=== PATIENT | female | born 1975 | race Caucasian/White ===

== ENCOUNTER 2019-02-22 17:20 | Emergency (ER) | payer MEDICARE, SELFPAY ==
[2019-02-22 17:24] VITALS: BP 135/104; PULSE 103; RESP 16; TEMP 36.8; O2SAT 97; BMI 18.8
--- NOTE | 2019-02-22 18:16 | ED_ITS ---
HPI - Weakness <Marcy Burgess PA-C - Last Filed: 02/22/19 20:13> General Chief complaint: Weakness Stated complaint: MS FLARE Time Seen by Provider: 02/22/19 18:09 Source: patient and family Mode of arrival: ambulatory Limitations: no limitations History of Present Illness HPI Narrative: This 43-year-old female comes to ED secondary to feeling of generalized weakness, concern for MS flare. She states that normally she is good about keeping snacks at work so she can nibble frequently, however today she has not had any food or water at all and states she started to feel tired at lunchtime. She states that she feels very fatigued and generalized weakness. She states it is even an effort to breathe. She has some soreness all over. She does have a history of MS. She denies any acute localized pain. She denies any localized weakness today. She states that she always has some double vision due to the MS but this has not changed today. She has not had any nausea or vomiting. She denies any urinary symptoms, chest pain or king dyspnea. She states she has had some allergy symptoms with runny nose and postnasal drip and occasional cough which are unchanged. She has not had any fever, chills, sweats. She states she does not feel ill and has not been exposed to anyone with infection. She denies any possibility of and states she has menses now. She does not know who her primary care provider is, does see a neurologist in [place]. She reports compliance with [employer] for MS Related Data Allergies Allergy/AdvReac Type Severity Reaction Status Date / Time No Known Drug Allergies Allergy Verified 02/22/19 17:29 Review of Systems <Marcy Burgess PA-C - Last Filed: 02/22/19 20:13> Review of Systems ROS Unobtainable: All systems reviewed & are unremarkable except as noted in HPI and below PFSH <Marcy Burgess PA-C - Last Filed: 02/22/19 20:13> Medical History (Updated 02/22/19 @ 19:50 by Marcy Burgess PA-C) Hypothyroidism (Chronic) Multiple sclerosis (Chronic) Seasonal allergies (Chronic) Surgical History (Updated 02/22/19 @ 18:46 by Marcy Burgess PA-C) History of thoracic surgery (Resolved) Social History (Updated 02/22/19 @ 18:46 by Marcy Burgess PA-C) Smoking Status: Never smoker Social History (Updated 02/22/19 @ 18:46 by Marcy Burgess PA-C) Smoking Status: Never smoker Exam <Marcy Burgess PA-C - Last Filed: 02/22/19 20:13> Narrative Exam Narrative: GENERAL APPEARANCE: Patient sitting comfortably, in no distress, playing a cellphone game with her significant other NECK/THYROID: Neck supple,: LUNGS: Clear to auscultation bilaterally, no cough on exam. HEART: Regular rate and rhythm without murmur, normal S1, S2, no S3 or S4. ABDOMEN: Soft, NT, ND, + BS x 4 quadrants EXTREMITIES: No edema. No calf tenderness NEUROLOGIC: Alert, needs to be frequently redirected but answers questions appropriately, normal speech and coordination. DERMATOLOGIC: No exanthem MUSCULOSKELETAL: Moves all extremities without focal weakness Initial Vital Signs Initial Vital Signs: Vital Signs Temperature 98.2 F 02/22/19 17:24 Pulse Rate 103 H 02/22/19 17:24 Respiratory Rate 16 02/22/19 17:24 Blood Pressure 135/104 H 02/22/19 17:24 Pulse Oximetry 97 02/22/19 17:24 <Dony Sampson DO - Last Filed: 02/22/19 20:55> Initial Vital Signs Initial Vital Signs: Vital Signs Temperature 98.2 F 02/22/19 17:24 Pulse Rate 103 H 02/22/19 17:24 Respiratory Rate 16 02/22/19 17:24 Blood Pressure 135/104 H 02/22/19 17:24 Pulse Oximetry 97 02/22/19 17:24 Course <Marcy Burgess PA-C - Last Filed: 02/22/19 20:13> Additional Information: Patient reported compliance with her medications, denies any intoxication. She reported feeling improved after some IV fluids as well as eating and drinking, no trouble tolerating p.o. intake. She did not have any focal symptoms today. Suspect that based on her history this is due to not eating or drinking all day when she states that typically she has to small amounts of food throughout the day. Advised return if any acutely worsening symptoms, otherwise follow up with PCP Orders Ordered: ED Orders 02/22/19 18:32 XR chest 1V Stat 02/22/19 18:40 Complete Blood Count AUTO DIFF Stat Comprehensive Metabolic Panel Stat Discontinued Medications Sodium Chloride (Normal Saline 0.9%) 1,000 mls @ 1,000 mls/hr IV BOLUS ONE Stop: 02/22/19 19:31 Last Admin: 02/22/19 18:54 Dose: Not Given Sodium Chloride (Normal Saline 0.9%) 1,000 mls @ 1,000 mls/hr IV BOLUS ONE Stop: 02/22/19 19:38 Last Infusion: 02/22/19 19:55 Dose: 1,000 mls/hr Admin: 02/22/19 18:47 Dose: 1,000 mls/hr Vital Signs - 8 hr 02/22/19 17:24 02/22/19 19:55 Temperature 98.2 F Pulse Rate 103 H 82 Respiratory Rate 16 15 Blood Pressure 135/104 H 120/92 H Pulse Oximetry 97 97 <Dony Sampson DO - Last Filed: 02/22/19 20:55> Orders Ordered: ED Orders 02/22/19 18:32 XR chest 1V Stat 02/22/19 18:40 Complete Blood Count AUTO DIFF Stat Comprehensive Metabolic Panel Stat Discontinued Medications Sodium Chloride (Normal Saline 0.9%) 1,000 mls @ 1,000 mls/hr IV BOLUS ONE Stop: 02/22/19 19:31 Last Admin: 02/22/19 18:54 Dose: Not Given Sodium Chloride (Normal Saline 0.9%) 1,000 mls @ 1,000 mls/hr IV BOLUS ONE Stop: 02/22/19 19:38 Last Infusion: 02/22/19 19:55 Dose: 1,000 mls/hr Admin: 02/22/19 18:47 Dose: 1,000 mls/hr Vital Signs - 8 hr 02/22/19 17:24 02/22/19 19:55 Temperature 98.2 F Pulse Rate 103 H 82 Respiratory Rate 16 15 Blood Pressure 135/104 H 120/92 H Pulse Oximetry 97 97 MDM - Weakness <Marcy Burgess PA-C - Last Filed: 02/22/19 20:13> Lab Data Attestation: I reviewed the patient's lab results. Result diagrams: 02/22/19 18:40 02/22/19 18:40 Lab Results 02/22/19 02/22/19 Range/Units 18:40 18:40 WBC 5.4 (4.5-11.0) X10^3/uL RBC 4.04 (4.0-5.2) X10^6/uL Hgb 12.9 (12.0-16.0) g/dL Hct 38.3 (36-46) % MCV 94.8 (80-100) fL MCH 31.9 (26-34) PG MCHC 33.6 (30-36) % RDW 14.8 (11.6-14.8) % Plt Count 245 (150-400) X10^3/uL Neut % (Auto) 42.3 L (50-75) % Lymph % (Auto) 49.1 H (25-40) % Brooke % (Auto) 7.7 (3-14) % Eos % (Auto) 0.5 L (2-4) % Baso % (Auto) 0.4 (0-2) % Neut # (Auto) 2300 (4355-7990) /uL Lymph # (Auto) 2700 (5145-6525) /uL Brooke # (Auto) 400 (0-900) /uL Eos # (Auto) 0 (0-450) /uL Baso # (Auto) 0 (0-100) /uL Sodium 147 H (137-145) mmol/L Potassium 3.8 (3.4-5.1) mmol/L Chloride 107 (98-107) mmol/L Carbon Dioxide 26 (22-32) mmol/L BUN 12 (7-17) mg/dL Creatinine 0.60 (0.52-1.04) mg/dL Estimated GFR > 60.0 (>60) mL/min BUN/Creatinine Ratio 20.0 (6-22) Glucose 102 H (70-100) mg/dL Calcium 9.5 (8.4-10.2) mg/dL Total Bilirubin 0.4 (0.2-1.3) mg/dL AST 39 H (14-36) IU/L ALT 19 (9-52) IU/L Alkaline Phosphatase 54 (38-126) U/L Total Protein 8.5 H (6.3-8.2) g/dL Albumin 5.0 (3.5-5.0) g/dL Globulin 3.5 (1.7-4.1) g/dL Albumin/Globulin Ratio 1.4 (1.0-2.8) Point of Care Testing Glucose POC 107 Imaging Data Chest x-ray: Radiologist's impression: 25 Marcy Burgess PA-C Find Patient Imaging JEFF LIN A 43 F 1975 ACTIVITY DATE EXAM STATUS AUTHOR 02/22/19 18:[address] [address] XRay Report Signed Patient: JEFF LIN [facility]#: [id number] : 1975Acct:[id number] Age/Sex: 43 / FDate of Service: 02/22/19 Loc: ED Accession Number: [id number] Procedure: XR chest 1V Ordering Provider: Marcy Burgess P.A-C PROCEDURE: XR CHEST 1V INDICATIONS: fatigue, dyspnea TECHNIQUE: One view of the chest was acquired. COMPARISON: None. FINDINGS: Surgical changes and devices: None. Lungs and pleura: Lungs are clear. No pleural effusions or pneumothorax. Mediastinum: Mediastinal contours appear normal. Heart size is normal. Bones and chest wall: No suspicious bony lesions. Overlying soft tissues appear unremarkable. IMPRESSION: Normal for age, source of current fatigue and shortness of breath symptoms is not seen. Dictated by: Leighton Galicia M.D. on 02/22/2019 at 18:54 Approved by: Leighton Galicia M.D. on 02/22/2019 at 18:54 <Dony Sampson DO - Last Filed: 02/22/19 20:55> Lab Data Lab Results 02/22/19 02/22/19 Range/Units 18:40 18:40 WBC 5.4 (4.5-11.0) X10^3/uL RBC 4.04 (4.0-5.2) X10^6/uL Hgb 12.9 (12.0-16.0) g/dL Hct 38.3 (36-46) % MCV 94.8 (80-100) fL MCH 31.9 (26-34) PG MCHC 33.6 (30-36) % RDW 14.8 (11.6-14.8) % Plt Count 245 (150-400) X10^3/uL Neut % (Auto) 42.3 L (50-75) % Lymph % (Auto) 49.1 H (25-40) % Brooke % (Auto) 7.7 (3-14) % Eos % (Auto) 0.5 L (2-4) % Baso % (Auto) 0.4 (0-2) % Neut # (Auto) 2300 (2473-3406) /uL Lymph # (Auto) 2700 (6615-2091) /uL Brooke # (Auto) 400 (0-900) /uL Eos # (Auto) 0 (0-450) /uL Baso # (Auto) 0 (0-100) /uL Sodium 147 H (137-145) mmol/L Potassium 3.8 (3.4-5.1) mmol/L Chloride 107 (98-107) mmol/L Carbon Dioxide 26 (22-32) mmol/L BUN 12 (7-17) mg/dL Creatinine 0.60 (0.52-1.04) mg/dL Estimated GFR > 60.0 (>60) mL/min BUN/Creatinine Ratio 20.0 (6-22) Glucose 102 H (70-100) mg/dL Calcium 9.5 (8.4-10.2) mg/dL Total Bilirubin 0.4 (0.2-1.3) mg/dL AST 39 H (14-36) IU/L ALT 19 (9-52) IU/L Alkaline Phosphatase 54 (38-126) U/L Total Protein 8.5 H (6.3-8.2) g/dL Albumin 5.0 (3.5-5.0) g/dL Globulin 3.5 (1.7-4.1) g/dL Albumin/Globulin Ratio 1.4 (1.0-2.8) Point of Care Testing Glucose POC 107 Discharge Plan Departure Patient Disposition: Home Clinical Impression: Weakness generalized Fatigue Qualifiers: Fatigue type: other Qualified Code(s): R53.83 - Other fatigue Discharge Date/Time: 02/22/19 19:55 Interventions: ED Discharge Assessment Last Done: 02/22/19 19:55 Instructions: DI for Fatigue Activity Restrictions/Additional Instructions: There was no acute problem found on your lab work today to explain your fatigue and weakness, and I suspect from what you described to me today that this was due to lack of food and fluids with working. Since you are feeling better and able to keep down food and fluids on your own, you can monitor at home. Please drink lots of clear fluids tonight and eat as you usually would, and you can resume normal activity tomorrow as long as you are feeling better. Please schedule a follow-up with your primary care provider this week for recheck. You do not appear to have an exacerbation of your MS today, but you should contact your neurologist right away if you have localized weakness, new vision changes, localized pain, etc. Please continue your usual medications Referrals: Juan Carlos Eagle DO [Non-Staff] - <Dony Sampson DO - Last Filed: 02/22/19 20:55> Cosign ED Attending Boature Attestation: I was available for consultation during this patient's emergency department encounter
--- NOTE | 2019-02-22 18:32 | DI.RAD.S_ITS ---
PROCEDURE: XR CHEST 1V INDICATIONS: fatigue, dyspnea TECHNIQUE: One view of the chest was acquired. COMPARISON: None. FINDINGS: Surgical changes and devices: None. Lungs and pleura: Lungs are clear. No pleural effusions or pneumothorax. Mediastinum: Mediastinal contours appear normal. Heart size is normal. Bones and chest wall: No suspicious bony lesions. Overlying soft tissues appear unremarkable. IMPRESSION: Normal for age, source of current fatigue and shortness of breath symptoms is not seen. Dictated by: Leighton Galicia M.D. on 02/22/2019 at 18:54 Approved by: Leighton Galicia M.D. on 02/22/2019 at 18:54
[2019-02-22] MEDS: SODIUM CHLORIDE 0.9% 1,000 ML 1000 ML IV (18:47)
[2019-02-22 18:49] LABS: Add Manual Diff / Slide Review NO; Basophils Absolute Auto 0 /uL (0-100); Basophils Percent Auto 0.4 % (0-2); Eosinophils Absolute Auto 0 /uL (0-450); Eosinophils Percent Auto 0.5 % (2-4); Hematocrit 38.3 % (36-46); Hemoglobin 12.9 g/dL (12.0-16.0); Lymphocytes Absolute Auto 2700 /uL (1100-4500); Lymphocytes Percent Auto 49.1 % (25-40); Mean Corpuscular HGB Conc 33.6 % (30-36); Mean Corpuscular Hemoglobin 31.9 PG (26-34); Mean Corpuscular Volume 94.8 fL (80-100); Monocytes Absolute Auto 400 /uL (0-900); Monocytes Percent Auto 7.7 % (3-14); Neutrophils Absolute Auto 2300 /uL (1500-7000); Neutrophils Percent Auto 42.3 % (50-75); Platelet Count 245 X10^3/uL (150-400); Red Blood Cell Count 4.04 X10^6/uL (4.0-5.2); Red Cell Distribution Width 14.8 % (11.6-14.8); White Blood Cell Count 5.4 X10^3/uL (4.5-11.0)
[2019-02-22 19:09] LABS: Alanine Aminotransferase 19 IU/L (9-52); Albumin Globulin Ratio 1.4 (1.0-2.8); Alkaline Phosphatase 54 U/L (38-126); Aspartate Aminotransferase 39 IU/L (14-36); Bilirubin Total 0.4 mg/dL (0.2-1.3); Blood Urea Nitrogen 12 mg/dL (7-17); Calcium 9.5 mg/dL (8.4-10.2); Carbon Dioxide 26 mmol/L (22-32); Chloride 107 mmol/L (98-107); Estimated Glomerular Filt Rate > 60.0 mL/min (>60); Globulin 3.5 g/dL (1.7-4.1); Glucose 102 mg/dL (70-100); HEMOLYSIS 16 (0-50); Potassium 3.8 mmol/L (3.4-5.1); Sodium 147 mmol/L (137-145); Total Protein 8.5 g/dL (6.3-8.2)
[2019-02-22 19:55] VITALS: BP 120/92; PULSE 82; RESP 15; O2SAT 97
== END 2019-02-22 19:55 | disposition home or self-care (01) ==
PROVIDERS: Emergency Provider Internal Medicine
DX: R53.83 Other fatigue (principal)
CPT/HCPCS: 36591; 71045; 80053; 82962; 85025; 96360; 99283; 99284

== ENCOUNTER 2020-07-14 20:01 | Emergency (ER) | payer MEDICARE, SELFPAY ==
[2020-07-14] VITALS (7 sets, daily range): BP systolic 148–161; BP diastolic 92–113; PULSE 41–52; RESP 13–24; TEMP 36.4; O2SAT 97–100; BMI 18.0
--- NOTE | 2020-07-14 20:14 | DI.RAD.S_ITS ---
PROCEDURE: XR CHEST 1V INDICATIONS: chest pain TECHNIQUE: One view of the chest was acquired. COMPARISON: [facility], CT, CT ANGIO CHEST PE, 05/07/2020, 9:14. [facility], CR, XR CHEST 1V, 02/22/2019, 18:37. FINDINGS: Surgical changes and devices: None. Lungs and pleura: Lungs are clear. No pleural effusions or pneumothorax. Mediastinum: Mediastinal contours appear abnormal with a right-sided aortic arch. Heart size is normal. Bones and chest wall: No suspicious bony lesions. Overlying soft tissues appear unremarkable. IMPRESSION: No pneumonia found. Right-sided aortic arch noted. Dictated by: Leighton Galicia M.D. on 07/14/2020 at 20:33 Approved by: Leighton Galicia M.D. on 07/14/2020 at 20:35
[2020-07-14 20:33] LABS: INR 0.9 (0.9-1.3); Prothrombin Time 10.6 SECONDS (10.1-12.7)
[2020-07-14 20:36] LABS: PTT Partial Thromboplastin Tim 24 SECONDS (26.4-36.2)
--- NOTE | 2020-07-14 20:36 | PC.NURSE ---
Provider notified and aware of pulse.
[2020-07-14 20:37] LABS: Alanine Aminotransferase 41 IU/L (<35); Albumin 3.8 g/dL (3.5-5.0); Albumin Globulin Ratio 1.5 (1.0-2.8); Alkaline Phosphatase 41 U/L (38-126); Aspartate Aminotransferase 29 IU/L (14-36); BUN Creatinine Ratio 30.8 (6-22); Bilirubin Total 0.5 mg/dL (0.2-1.3); Blood Urea Nitrogen 12 mg/dL (7-17); Calcium 8.4 mg/dL (8.4-10.2); Carbon Dioxide 27 mmol/L (22-32); Chloride 100 mmol/L (98-107); Creatine Kinase 22 U/L (30-135); Estimated Glomerular Filt Rate > 60.0 mL/min (>60); Globulin 2.6 g/dL (1.7-4.1); Glucose 135 mg/dL (70-100); HEMOLYSIS < 15 (0-50); Lipase 307 U/L (23-300); Sodium 131 mmol/L (137-145); Total Protein 6.4 g/dL (6.3-8.2)
[2020-07-14 20:44] LABS: Add Manual Diff / Slide Review NO; Basophils Absolute Auto 0 /uL (0-100); Basophils Percent Auto 0.2 % (0-2); Eosinophils Absolute Auto 100 /uL (0-450); Eosinophils Percent Auto 0.7 % (2-4); Hematocrit 35.6 % (36-46); Lymphocytes Absolute Auto 5000 /uL (1100-4500); Lymphocytes Percent Auto 32.8 % (25-40); Mean Corpuscular HGB Conc 33.8 % (30-36); Mean Corpuscular Hemoglobin 31.6 PG (26-34); Mean Corpuscular Volume 93.4 fL (80-100); Monocytes Absolute Auto 1300 /uL (0-900); Monocytes Percent Auto 8.3 % (3-14); Neutrophils Absolute Auto 8900 /uL (1500-7000); Platelet Count 467 X10^3/uL (150-400); Red Blood Cell Count 3.81 X10^6/uL (4.0-5.2); Red Cell Distribution Width 13.5 % (11.6-14.8); White Blood Cell Count 15.3 X10^3/uL (4.5-11.0)
[2020-07-14 20:49] LABS: Troponin I < 0.012 ng/mL (0.01-0.034)
[2020-07-14] MEDS: methylPREDNISolone 125 MG/2 ML VIAL IV ×2 (20:54→21:27)
--- NOTE | 2020-07-14 21:49 | ED.WEAKNESS ---
HPI - Weakness General Chief complaint: Weakness Stated complaint: incoherent Time Seen by Provider: 07/14/20 20:39 Source: patient and family Mode of arrival: Family Vehicle Limitations: no limitations History of Present Illness HPI Narrative: Onset of generalized weakness slow speech and confusion typical of her multiple sclerosis exacerbation according patient and starting 2-3 hours ago. Patient was just seen and admitted to [facility] last week. For exacerbation. MRI was completed.. Patient was placed on total 5 days of IV steroids 1 g per day. Hypotension likely due to poor intake and vomiting. IV hydration established history alcohol use. Patient given steroid pack last Wednesday by her neurologist and is tapering. MRI of the brain July 08, 2020 at 8:00 a.m. to a.m.. Slightly increased diffuse white matter signals compared to August 26, 2017 no other comparison. Patient denies any alcohol use today. Related Data Home Medications Medication Instructions Recorded Confirmed methocarbamol 500 mg PO TID 07/14/20 07/14/20 Allergies Allergy/AdvReac Type Severity Reaction Status Date / Time No Known Drug Allergies Allergy Verified 07/14/20 20:22 Review of Systems Review of Systems Narrative: GENERAL: Denies chills, fatigue, malaise, fever, sweats. Complains of general weakness HEENT: Denies sinus pain, ear pain, sore throat, difficulty swallowing RESPIRATORY: Denies dyspnea, cough CARDIOVASCULAR: Denies chest pain, palpitations, edema, GASTROINTESTINAL: Denies nausea, vomiting, abdominal pain, diarrhea, constipation, melena. : Denies dysuria, frequency, hematuria MUSCULOSKELETAL: denies muscle or bony pain SKIN: Denies rash, skin lesions NEUROLOGIC: Complains of general weakness, denied headache, numbness, complains change in speech, confusion PSYCHIATRIC: No SI or HI or hallucinations ROS Unobtainable: All systems reviewed & are unremarkable except as noted in HPI and below Patient History Medical History Hypothyroidism (Chronic) Multiple sclerosis (Chronic) Seasonal allergies (Chronic) Surgical History History of thoracic surgery (Resolved) Social History Smoking Status: Never smoker Smoking Status: Never smoker alcohol intake frequency: 0-2 drinks per day Substance Use Type: does not use Exam Narrative Exam Narrative: GENERAL: patient appears stated age. Well-nourished, well-developed patient, in no distress, not toxic not dyspneic HEAD: Normocephalic. EYES: Pupils equal round and reactive. No scleral icterus. No injection no discharge EOMI ENT: Mucous membranes moist. No drooling no tongue elevation no trismus no malocclusion NECK: Trachea midline. Non tender CARDIOVASCULAR: Regular rate and rhythm without murmurs, gallops, or rubs. RESPIRATORY: Clear to auscultation. Breath sounds equal bilaterally. No wheezes, rales, or rhonchi. GASTROINTESTINAL: Abdomen soft, non-tender, nondistended. EXTREMITIES: No gross deformities. BACK: Nontender without deformity or crepitance. No flank tenderness. NEURO: AOx4. Has slurred speech but is answering appropriately. Strong equal senior cyber security analyst. No facial droop. SKIN: Warm and dry PSYCH: Not anxious, is cooperative Initial Vital Signs Initial Vital Signs: Vital Signs Temperature 97.6 F 07/14/20 20:15 Pulse Rate 41 L 07/14/20 20:15 Respiratory Rate 18 07/14/20 20:15 Blood Pressure 159/100 H 07/14/20 20:15 Pulse Oximetry 99 07/14/20 20:15 Course Course Course Narrative: Patient new finding of bradycardia. Will need admission/transfer. We do not have Neurology at this hospital. Decision to Admit Date: 07/14/20 Decision to Admit time: 21:49 Orders Ordered: ED Orders 07/14/20 20:14 XR chest 1V Stat EKG-12 Lead Stat 07/14/20 20:15 COVID19 -ED/INPAT/OR/L&D Stat Complete Blood Count AUTO DIFF Stat Comprehensive Metabolic Panel Stat ETOH [Ethanol (ETOH)] Stat Lipase Stat Partial Thromboplastin Time Stat Prothrombin Time INR Stat Thyroid Stimulating Hormone Stat Troponin & CK Cardiac Panel Stat Discontinued Medications Methylprednisolone (Solu-Medrol 125 Mg Vial) 125 mg IV NOW ONE Stop: 07/14/20 20:51 Last Admin: 07/14/20 20:54 Dose: 125 mg Documented by: RMARTIN Methylprednisolone (Solu-Medrol 125 Mg Vial) 125 mg IV NOW ONE Stop: 07/14/20 21:24 Last Admin: 07/14/20 21:27 Dose: 125 mg Documented by: RMARTIN Methylprednisolone (Solu-Medrol 125 Mg Vial) 750 mg IV NOW ONE Stop: 07/14/20 21:47 Last Admin: 07/14/20 22:07 Dose: 750 mg Documented by: SOLIS Reevaluation(s) Reevaluation #1: Reviewed with patient and results and they agreed for transfer to [place]. Currently feeling a bit better. Speech has improved. Improved with more clear speech. Otherwise resting comfortably Time: 22:03 Consultations Consultation #1: Spoke with patient Neurologist, dr bernard, give total of 1 g of Solu-Medrol now. Get alcohol level. Patient can be transferred to [place] admit to hospitalist. Time: 21:50 Consultation #2: Spoke with Dr. Mcgregor, hospitalist at [place]. Will accept patient monitored bed Time: 22:04 Vital Signs Vital signs: Vital Signs - 8 hr 07/14/20 20:15 07/14/20 20:19 07/14/20 20:30 Temperature 97.6 F Pulse Rate 41 L 43 L 52 L Respiratory Rate 18 14 16 Blood Pressure 159/100 H 148/92 H Pulse Oximetry 99 100 99 07/14/20 21:00 07/14/20 21:30 07/14/20 22:00 Temperature Pulse Rate 44 L 44 L 47 L Respiratory Rate 13 15 24 Blood Pressure 161/99 H 160/98 H 154/111 H Pulse Oximetry 100 99 98 07/14/20 22:13 Temperature Pulse Rate 45 L Respiratory Rate 15 Blood Pressure 161/113 H Pulse Oximetry 97 MDM - Weakness Differential Diagnosis Differential diagnosis: Likely dehydration and other (Alcohol intoxication/MS exacerbation) Medical Records Attestation: I reviewed the patient's medical records. Medical records narrative: The medical chart faxed from [facility] Lab Data Attestation: I reviewed the patient's lab results. Result diagrams: 07/14/20 20:15 07/14/20 20:15 Labs: Lab Results 07/14/20 07/14/20 07/14/20 Range/Units 20:15 20:15 20:15 WBC 15.3 H (4.5-11.0) X10^3/uL RBC 3.81 L (4.0-5.2) X10^6/uL Hgb 12.0 (12.0-16.0) g/dL Hct 35.6 L (36-46) % MCV 93.4 (80-100) fL MCH 31.6 (26-34) PG MCHC 33.8 (30-36) % RDW 13.5 (11.6-14.8) % Plt Count 467 H (150-400) X10^3/uL Neut % (Auto) 58.0 (50-75) % Lymph % (Auto) 32.8 (25-40) % Izard % (Auto) 8.3 (3-14) % Eos % (Auto) 0.7 L (2-4) % Baso % (Auto) 0.2 (0-2) % Neut # (Auto) 8900 H (0922-3670) /uL Lymph # (Auto) 5000 H (7285-8342) /uL Izard # (Auto) 1300 H (0-900) /uL Eos # (Auto) 100 (0-450) /uL Baso # (Auto) 0 (0-100) /uL PT 10.6 (10.1-12.7) SECONDS INR 0.9 (0.9-1.3) APTT 24 L (26.4-36.2) SECONDS Sodium 131 L (137-145) mmol/L Potassium 4.0 (3.4-5.1) mmol/L Chloride 100 (98-107) mmol/L Carbon Dioxide 27 (22-32) mmol/L BUN 12 (7-17) mg/dL Creatinine 0.39 L (0.52-1.04) mg/dL Estimated GFR > 60.0 (>60) mL/min BUN/Creatinine Ratio 30.8 H (6-22) Glucose 135 H (70-100) mg/dL Calcium 8.4 (8.4-10.2) mg/dL Total Bilirubin 0.5 (0.2-1.3) mg/dL AST 29 (14-36) IU/L ALT 41 H (<35) IU/L Alkaline Phosphatase 41 (38-126) U/L Total Creatine Kinase 22 L (30-135) U/L CK-MB (CK-2) TNP CK-MB (CK-2) Rel Index TNP Troponin I < 0.012 (0.01-0.034) ng/mL Total Protein 6.4 (6.3-8.2) g/dL Albumin 3.8 (3.5-5.0) g/dL Globulin 2.6 (1.7-4.1) g/dL Albumin/Globulin Ratio 1.5 (1.0-2.8) Lipase 307 H (23-300) U/L TSH (0.47-4.68) uIU/mL Ethyl Alcohol ( - 10) mg/dL COVID-19 PCR (Negative) 07/14/20 07/14/20 07/14/20 Range/Units 20:15 20:15 20:15 WBC (4.5-11.0) X10^3/uL RBC (4.0-5.2) X10^6/uL Hgb (12.0-16.0) g/dL Hct (36-46) % MCV (80-100) fL MCH (26-34) PG MCHC (30-36) % RDW (11.6-14.8) % Plt Count (150-400) X10^3/uL Neut % (Auto) (50-75) % Lymph % (Auto) (25-40) % Izard % (Auto) (3-14) % Eos % (Auto) (2-4) % Baso % (Auto) (0-2) % Neut # (Auto) (4613-2587) /uL Lymph # (Auto) (3903-7378) /uL Izard # (Auto) (0-900) /uL Eos # (Auto) (0-450) /uL Baso # (Auto) (0-100) /uL PT (10.1-12.7) SECONDS INR (0.9-1.3) APTT (26.4-36.2) SECONDS Sodium (137-145) mmol/L Potassium (3.4-5.1) mmol/L Chloride (98-107) mmol/L Carbon Dioxide (22-32) mmol/L BUN (7-17) mg/dL Creatinine (0.52-1.04) mg/dL Estimated GFR (>60) mL/min BUN/Creatinine Ratio (6-22) Glucose (70-100) mg/dL Calcium (8.4-10.2) mg/dL Total Bilirubin (0.2-1.3) mg/dL AST (14-36) IU/L ALT (<35) IU/L Alkaline Phosphatase (38-126) U/L Total Creatine Kinase (30-135) U/L CK-MB (CK-2) CK-MB (CK-2) Rel Index Troponin I (0.01-0.034) ng/mL Total Protein (6.3-8.2) g/dL Albumin (3.5-5.0) g/dL Globulin (1.7-4.1) g/dL Albumin/Globulin Ratio (1.0-2.8) Lipase (23-300) U/L TSH 0.257 L (0.47-4.68) uIU/mL Ethyl Alcohol < 10 ( - 10) mg/dL COVID-19 PCR Negative (Negative) Imaging Data Chest x-ray: Radiologist Impression: [address] [address] XRay Report Signed Patient: JEFF LIN [facility]#: [id number] : 1975Acct:[id number] Age/Sex: 44 / FDate of Service: 07/14/20 Loc: ED Accession Number: [id number] Procedure: XR chest 1V Ordering Provider: Jacob Arriaga MD PROCEDURE: XR CHEST 1V INDICATIONS: chest pain TECHNIQUE: One view of the chest was acquired. COMPARISON: [facility], CT, CT ANGIO CHEST PE, 05/07/2020, 9:14. [facility], CR, XR CHEST 1V, 02/22/2019, 18:37. FINDINGS: Surgical changes and devices: None. Lungs and pleura: Lungs are clear. No pleural effusions or pneumothorax. Mediastinum: Mediastinal contours appear abnormal with a right-sided aortic arch. Heart size is normal. Bones and chest wall: No suspicious bony lesions. Overlying soft tissues appear unremarkable. IMPRESSION: No pneumonia found. Right-sided aortic arch noted. Dictated by: Leighton Galicia M.D. on 07/14/2020 at 20:33 Approved by: Leighton Galicia M.D. on 07/14/2020 at 20:35 ECG Data Attestation: I personally reviewed and interpreted this ECG as follows: Interpretation: Marked sinus bradycardia, rate [address] elevation depression MDM Narrative Medical decision making narrative: Appropriate for transfer to [facility] with her neurologist that has privileges there. No pacer indicated this time. Patient otherwise hemodynamically stable. Asymptomatic with bradycardia Discharge Plan Departure Patient Disposition: [facility] Clinical Impression: Exacerbation of multiple sclerosis, Bradycardia Discharge Date/Time: 07/14/20 23:10 Prescriptions: No Action methocarbamol 500 mg Tablet 500 mg PO TID RF: 0
[2020-07-14 22:02] LABS: Ethanol (ETOH) < 10 mg/dL
[2020-07-14] MEDS: methylPREDNISolone 125 MG/2 ML VIAL 750 MG IV (22:07)
[2020-07-14 22:08] LABS: COVID19 -Nasal RAPID Negative (Negative)
[2020-07-14 22:33] LABS: Thyroid Stimulating Hormone 0.257 uIU/mL (0.47-4.68)
== END 2020-07-14 23:10 | disposition short-term general hospital (02) ==
PROVIDERS: Emergency Provider Emergency Medicine
DX: G35 Multiple sclerosis (principal); R00.1 Bradycardia, unspecified; I95.9 Hypotension, unspecified; R07.9 Chest pain, unspecified
CPT/HCPCS: 36415; 71045; 80053; 80320; 82550; 83690; 84443; 84484; 85025; 85610; 85730; 87635; 93005; 93010; 96374; 96376; 99284; J2930

== ENCOUNTER 2021-10-31 19:53 | Emergency (ER) | payer MEDICARE, SELFPAY ==
[2021-10-31 19:51] VITALS: BP 120/80; PULSE 120; RESP 16; TEMP 36.1; O2SAT 99; BMI 195.7
--- NOTE | 2021-10-31 20:33 | PC.NURSE ---
Patient declined blood work. Dr Sampson aware
--- NOTE | 2021-10-31 21:01 | PC.NURSE ---
Pt has refused labs, states that she does not want to hurt herself, denies SI.
--- NOTE | 2021-10-31 22:09 | ED.PSYCH ---
HPI - Psych General Chief Complaint: Psychiatric Symptoms Stated Complaint: SI Time Seen by Provider: 10/31/21 21:02 Source: EMS Mode of arrival: EMS History of Present Illness HPI Narrative: Patient is a 45-year-old female who is brought in by EMS and the police under a MILO for evaluation of suicidal ideation. Patient states that earlier today she was having a a argument with her partner. She states that the argument became somewhat he did. She states that she felt like her partner was not listening to her and so in order to get his attention she grabbed a kitchen knife and threatened to stab herself. She states that she did not mean to actually hurt herself. She states she was only doing it to get attention. She did express remorse for doing it. Her partner was someone who contacted EMS and the police. She is currently not suicidal. Has never tried to hurt herself in the past. No diagnosis of mental health issues per her report. Does have a history of MS. She does admit to drinking alcohol today. Related Data Home Medications Medication Instructions Recorded Confirmed methocarbamol 500 mg tablet 500 mg PO TID 07/14/20 07/14/20 Allergies Allergy/AdvReac Type Severity Reaction Status Date / Time erythromycin base Allergy Verified 10/31/21 20:04 Review of Systems Constitutional Constitutional: Denies headache(s) ENT Ears, Nose, Mouth, and Throat: Denies headache(s) Cardiovascular Cardiovascular: Reports system reviewed and no additional complaints, except as documented Respiratory Respiratory: Reports system reviewed and no additional complaints, except as documented Gastrointestinal Gastrointestinal: Reports system reviewed and no additional complaints, except as documented Musculoskeletal Comments: Left leg pain and spasms consistent with her MS Neurologic Neurologic: Denies headache(s) Psychiatric Psychiatric: Reports system reviewed and no additional complaints, except as documented and Reports as per HPI Hematologic/Lymphatic On Anticoagulants: No Patient History Medical History Hypothyroidism Multiple sclerosis Seasonal allergies Surgical History History of thoracic surgery Social History Smoking Status: Never smoker Smoking Status: Never smoker alcohol intake frequency: 0-2 drinks per day Substance Use Type: does not use Exam Initial Vital Signs Initial Vital Signs: Vital Signs Temperature 97 F L 10/31/21 19:51 Pulse Rate 120 H 10/31/21 19:51 Respiratory Rate 16 10/31/21 19:51 Blood Pressure 120/80 10/31/21 19:51 Pulse Oximetry 99 10/31/21 19:51 HENMT Head: normal to inspection and normocephalic Resp Effort & Inspection: normal respiratory effort Cardio Rate: regular rate Skin General: no rashes or lesions noted Neuro General: patient alert, patient awake and moves all extremities Psych Appearance: grossly normal and well kempt Mental Status: mental status grossly normal Speech and Movement: speech and movement normal and not restless Mood: congruent mood Affect: normal affect Attitude: cooperative Thought Process: normal Thought Content: normal Judgment: judgment good Scores GCS [place] coma scale eye opening: Spontaneous [place] coma scale verbal response: Orientated [place] coma scale motor response: Obey commands [place] coma scale total score: 15 Course Orders Ordered: ED Orders 10/31/21 20:21 Consult to [employer] - Personal Coach Stat Discontinued Medications Methocarbamol (Methocarbamol 500 Mg Tablet) 1,500 mg PO NOW ONE Stop: 10/31/21 22:11 Last Admin: 10/31/21 22:24 Dose: 1,500 mg Documented by: LESLIE Vital Signs Vital signs: Vital Signs - 8 hr 10/31/21 22:24 Pulse Rate 117 H Respiratory Rate 18 Blood Pressure 115/79 Pulse Oximetry 97 MDM - Psych MDM Narrative Medical decision making narrative: Upon arrival patient declined to have blood drawn. She was alert oriented x3. GCS of 15. Is not clinically intoxicated. She is not currently suicidal. She express remorse over what happened earlier today. She states she was not trying to kill herself she was just trying to get her partner's attention during the argument so that he would listen to what she was trying to say. She states she does not want admitted to the hospital. She does not want to talk with social Work. She has no desire to hurt herself and does feel safe being discharged. She states she does not want to go home to where her partners located. She feels safe going to a hotel this evening. She has a brother who she is going to call who can come and pick her up tomorrow and be with her. Do feel that the patient has capacity to make decisions. I do not feel that she meets criteria for involuntary admission. Patient was given return precautions and she does state that she will return to the emergency department if she has any thoughts the future of hurting herself. Discharge Plan Departure Patient Disposition: Home Clinical Impression: Adjustment disorder Activity Restrictions/Additional Instructions: I recommend that you continue to take all of your medications as directed. Keep all of your scheduled medical appointments and return to the emergency department for any new or worsening symptoms. Prescriptions: No Action methocarbamol 500 mg Tablet 500 mg PO TID 0RF
[2021-10-31 22:24] VITALS: BP 115/79; PULSE 117; RESP 18; O2SAT 97
[2021-10-31] MEDS: methocarbamoL 500 MG TABLET 1500 MG PO (22:24)
== END 2021-10-31 22:48 | disposition home or self-care (01) ==
PROVIDERS: Emergency Provider Emergency Medicine
DX: F43.20 Adjustment disorder, unspecified (principal)
CPT/HCPCS: 99283; 99284